=== PATIENT | female | born 1995 | race Caucasian/White ===

== ENCOUNTER 2019-05-06 16:26 | Emergency (ER) | payer SELFPAY ==
[~2019-05-06] VITALS: Ht 162.6 cm; Wt 61.3 kg
[~2019-05-06 16:26] MED LIST: CEPH500T PO; IBUP-2029 PO; SULF1TAB47 PO
[2019-05-06] MEDS ORDERED: IBUPROFEN 600MG TABLET PO ONE (21:30)
[2019-05-06 23:51] VITALS: BP 121/78
== END 2019-05-06 23:52 | disposition home or self-care (01) ==
LOC: ER 16:26
DX: N64.4 Mastodynia (principal)
CPT/HCPCS: 76641; 81025; 99284